=== PATIENT | male | born 1945 | race Caucasian/White ===

== ENCOUNTER 2017-03-28 15:37 | Inpatient (IN) | payer OTHER, MEDICAID ==
[2017-03-28] MEDS ORDERED: PROVENTIL NEB TX 0.083% 2.5MG/ 3ML NEB PRN (15:45)
--- NOTE | 2017-03-28 18:13 | RAD ---
HISTORY: Pneumonia Study: Single-view chest Comparison: None Findings: The trachea is midline. The cardiac silhouette is mildly enlarged. The lungs demonstrate faint rig ht lower lobe opacity with blunting of the costophrenic suggesting a small effusion.. The bony thor ax is unremarkable. IMPRESSION: 1. Right lower lobe pneumonia with small effusion. Reported By:
[2017-03-28] MEDS: PROVENTIL NEB TX 0.083% 2.5MG/ 3ML NEB SCH (18:28)
[2017-03-28 20:26] LABS: BASOPHILS % (AUTO) 0.4 % (0.2-1.0); EOSINOPHILS # (AUTO) 0.1 x10^3/uL (0.0-0.2); HEMATOCRIT 38.8 % (42.0-54.0); HEMOGLOBIN 13.2 g/dL (13.5-18.0); LYMPHOCYTES # (AUTO) 2.1 X10^3/uL (1.3-2.9); LYMPHOCYTES % (AUTO) 36.7 % (21.0-51.0); MEAN CORPUSCULAR HEMOGLOBIN 31.9 pg (27.0-34.0); MEAN CORPUSCULAR VOLUME 93.9 fL (80.0-100.0); MEAN PLATELET VOLUME 8.3 fL (7.4-11.0); MONOCYTES # (AUTO) 0.6 x10^3/uL (0.3-0.8); MONOCYTES % (AUTO) 11.3 % (0.0-13.0); NEUTROPHILS # (AUTO) 2.9 x10^3/uL (2.2-4.8); NEUTROPHILS % (AUTO) 50.6 % (42.0-75.0); PLATELET COUNT 110 X10^3/uL (150.0-450.0); RED BLOOD COUNT 4.13 X10^6/uL (4.7-6.0); RED CELL DISTRIBUTION WIDTH 13.1 % (11.6-16.5); WHITE BLOOD COUNT 5.7 X10^3/uL (3.6-10.0)
[2017-03-28 20:45] LABS: ALANINE AMINOTRANSFERASE 25 Units/L (12-78); ALBUMIN 2.8 g/dL (3.4-5.0); ALKALINE PHOSPHATASE 88 Units/L (46-116); ASPARTATE AMINO TRANSFERASE 23 Units/L (15-37); BLOOD UREA NITROGEN 15 mg/dL (7-18); CALCIUM 8.4 mg/dL (8.5-10.1); CARBON DIOXIDE 37.6 mmol/L (21-32); CHLORIDE 108 mmol/L (98-107); COR CA(FOR HYPOALB) 9.4 mg/dL (8.5-10.1); COR NA(FOR HYPERGLY) 148 mmol/L (136-145); CREATININE 0.61 mg/dL (0.70-1.30); GLUCOSE 115 mg/dL (65-99); SODIUM 148 mmol/L (136-145); TOTAL PROTEIN 6.7 g/dL (6.4-8.2); eGFR BLACK RACES > 60 (>60); eGFR NON BLACK RACES > 60 (>60)
[2017-03-28] MEDS ORDERED: NS 250 ML IV 250 ML IV ONE (21:13)
[2017-03-28] MEDS: ZITHROMAX INJ 500 MG VIAL 500 MG in NS 250 ML IV 250 ML IV SCH (21:23)
[2017-03-28] MEDS: ROCEPHIN VIAL 1 GM 1 GM in NS 50 ML IV + SPIKE MINIBAG* 50 ML IV SCH (21:23)
[2017-03-29] MEDS: PROVENTIL NEB TX 0.083% 2.5MG/ 3ML NEB SCH ×5 (00:28→16:04)
[2017-03-29] MEDS ORDERED: NS 1/2 1000 ML IV 1,000 ML IV ONE (01:18)
[2017-03-29] MEDS: NS 1/2 1000 ML IV 1,000 ML IV SCH ×2 (01:20→22:10)
--- NOTE | 2017-03-29 05:59 | RAD ---
HISTORY: Follow up pneumonia Study: Chest one view Comparison: March 28, 2017 Findings: The heart is mildly enlarged. No congestive heart failure is noted. The lungs are hypoinflated. No d efinite infiltrates are present on today's examination. There is a focus of subsegmental atelectasis in the right lung base. The bony thorax is unremarkable. IMPRESSION: Subsegmental atelectasis right lung base. Hypo inflation Cardiomegaly without congestive heart failure. Reported By:
[2017-03-29 06:07] LABS: BASOPHILS % (AUTO) 0.3 % (0.2-1.0); EOSINOPHILS % (AUTO) 0.4 % (0.9-2.9); HEMATOCRIT 42.5 % (42.0-54.0); HEMOGLOBIN 14.5 g/dL (13.5-18.0); LYMPHOCYTES # (AUTO) 2.1 X10^3/uL (1.3-2.9); LYMPHOCYTES % (AUTO) 23.3 % (21.0-51.0); MEAN CORPUSCULAR HEMOGLOBIN 32.1 pg (27.0-34.0); MEAN CORPUSCULAR HGB CONC 34.1 g/dL (33.0-35.0); MEAN CORPUSCULAR VOLUME 94.4 fL (80.0-100.0); MEAN PLATELET VOLUME 8.6 fL (7.4-11.0); MONOCYTES # (AUTO) 1.2 x10^3/uL (0.3-0.8); MONOCYTES % (AUTO) 13.4 % (0.0-13.0); NEUTROPHILS # (AUTO) 5.5 x10^3/uL (2.2-4.8); NEUTROPHILS % (AUTO) 62.6 % (42.0-75.0); PLATELET COUNT 105 X10^3/uL (150.0-450.0); RED CELL DISTRIBUTION WIDTH 12.9 % (11.6-16.5); WHITE BLOOD COUNT 8.9 X10^3/uL (3.6-10.0)
[2017-03-29 06:25] LABS: ALANINE AMINOTRANSFERASE 25 Units/L (12-78); ALKALINE PHOSPHATASE 75 Units/L (46-116); ASPARTATE AMINO TRANSFERASE 26 Units/L (15-37); BLOOD UREA NITROGEN 15 mg/dL (7-18); CALCIUM 8.7 mg/dL (8.5-10.1); CARBON DIOXIDE 34.7 mmol/L (21-32); CHLORIDE 107 mmol/L (98-107); COR CA(FOR HYPOALB) 9.5 mg/dL (8.5-10.1); COR NA(FOR HYPERGLY) 149 mmol/L (136-145); CREATININE 0.66 mg/dL (0.70-1.30); GLUCOSE 116 mg/dL (65-99); SODIUM 149 mmol/L (136-145); TOTAL PROTEIN 7.1 g/dL (6.4-8.2); eGFR BLACK RACES > 60 (>60); eGFR NON BLACK RACES > 60 (>60)
[2017-03-29] MEDS: ZITHROMAX INJ 500 MG VIAL 500 MG in NS 250 ML IV 250 ML IV SCH (08:54)
[2017-03-29] MEDS: ROCEPHIN VIAL 1 GM 1 GM in NS 50 ML IV + SPIKE MINIBAG* 50 ML IV SCH (08:55)
--- NOTE | 2017-03-29 13:51 | DR.H&P ---
H&P - History & Physical for Day of: H&P Date: 03/28/17 - Chief Complaint Chief Complaint: cough, chest congestion. abnormal cxr - Allergies Allergies/Adverse Reactions: Allergies Allergy/AdvReac Type Severity Reaction Status Date / Time No Known Drug Allergies Allergy Verified 03/28/17 15:49 - History of Present Illness History of Present Illness: 71 WM ADMITTED FROM [facility] WITH ABNORMAL CXR, PNEUMONIA, CHF FINDINGS. PT HAS PMH OF MR, HTN, GERD, SEIZURE DISORDER, HTN. PLAN TO START IV ATBX, RESP CONSULT, I & OS. REPEAT AM LABS, SEIZURE PRECAUTIONS RESUME HOME MEDS - Past Medical History Past Medical History: Arthritis, CHF, Dementia, Depression, GERD, Hypertension, Seizures - Past Surgical History Additional Surgical History: PEG TUBE - Social History Does patient currently use any type of tobacco product: No Have you used tobacco products in the last 12 months: No Type of Tobacco Use: None Alcohol Use: None Drug Use: None - Medications Home Medications: Acetaminophen [TYLENOL SUPPOSITORY 650 MG *] 650 mg MO Q4H PRN 03/28/17 [ History Confirmed 03/28/17] Amlodipine Besylate [NORVASC 5 MG *] 1 tab PEG DAILY 03/28/17 [History Confirmed 03/28/17] Cyclosporine [Restasis] 1 drop EACHEYE BID 03/28/17 [History Confirmed 03/28/17] Ipratropium/Albuterol Nebule [DUONEB 0.5 MG/3 MG NEBULE *] 1 inh INH Q6H PRN [History Confirmed 03/28/17] Lactulose 30 ml PEG DAILY 03/28/17 [History Confirmed 03/28/17] Levetiracetam [Keppra liquid] 7.5 ml PEG BID 03/28/17 [History Confirmed ] Lisinopril [ZESTRIL *] 1 tab PEG BID 03/28/17 [History Confirmed 03/28/17] Lorazepam [ATIVAN 0.5 MG TAB *] 1 tab GT Q4H PRN 03/28/17 [History Confirmed ] Magnesium Hydroxide [Milk of Magnesia] 30 ml PEG DAILY 03/28/17 [History Confirmed 03/28/17] Ranitidine HCl [ZANTAC SYRUP 150 MG/10 ML *] 20 ml PEG DAILY 03/28/17 [History Confirmed 03/28/17] Valproic Acid (As Sodium Salt) [Valproic Acid] 10 ml PEG TID 03/28/17 [History Confirmed 03/28/17] - Review of Systems Constitutional: Weakness Eyes: No Symptoms Reported ENT: No Symptoms Reported Respiratory: Cough, Shortness of Breath, Wheezing Cardiovascular: No Symptoms Reported, Edema Gastrointestinal: No Symptoms Reported Genitourinary: Incontinence Musculoskeletal: No Symptoms Reported Skin: No Symptoms Reported Neurological: Confusion (CHRONIC) - Physical Exam Vital Signs: Temperature 99.8 F Pulse Rate [Left Brachial] 101 Pulse Rate [Right Brachial] 87 Pulse Rate 88 Respiratory Rate 22 Blood Pressure [Left Arm] 161/70 O2 Sat by Pulse Oximetry 90 Oriented: Person Eyes: Normal Ear: Normal Nose: Normal Throat: Dry Respiratory: Rhonchi Throughout, RLL Diminished, LLL Diminished Cardiovascular: Normal : Normal Auscultation: Bowel Sounds: Normal Palpation: Normal Tenderness: Normal Skin: Decreased Turgur Musculoskeletal: Motor Deficit (LOWER EXTREMITY MUSCLE WEAKNESS, ATROPHY) Mood Description: Flat Speech Pattern: Inappropriate - Assessment/Plan (1) Pneumonia Qualifiers: Pneumonia type: P Aspiration pneumonia type: A Laterality: L Lung location: L Status: Acute Plan: COLLECT SPUTUM AND BLOOD CULTURES, IV ATBX, RESPT THERAPY. CXR ON ADMISSION, REPEAT AM LABS, MONITOR. RESUME HOME MEDS,. SEIZURE PRECAUTIONS, I & OS, EKG (2) CHF (congestive heart failure) Qualifiers: Congestive heart failure type: C Congestive heart failure chronicity: C Status: Acute (3) GERD (gastroesophageal reflux disease) Qualifiers: Esophagitis presence: E Status: Acute (4) Seizure Status: Acute (5) Hypertension Qualifiers: Hypertension type: H Status: Acute
--- NOTE | 2017-03-29 14:27 | PCM.PROG ---
Progress Note - Progress Note for Day of Date: 03/29/17 - Subjective Subjective: 71 WM ADMITTED FROM [facility] WITH PNEUMONIA AND CHF. PT CONTINUES WITH DIMINISHED LUNG BASES AND DIFFUSE RHONCHI. PT SPUTUM CULTURE RESULTS ON CHART. WILL D/C ZITHROMAX AND START LEVAQUIN, CONTINUE WITH SUPPLEMENT O2, IV HYDRATION, LASIX IV, INSERT BOWEN FOR STRICT I & OS - Past Medical Family Social History Past Med/Fam/Surg Hx: No changes since H&P Allergies: Allergies No Known Drug Allergies Allergy (Verified 03/28/17 15:49) - Review of Systems ROS: No change since H&P - Vital Signs and I&O's Vital Signs: Temperature 99.8 F Pulse Rate [Left Brachial] 101 Pulse Rate [Right Brachial] 87 Pulse Rate 88 Respiratory Rate 22 Blood Pressure [Left Arm] 161/70 O2 Sat by Pulse Oximetry 90 Intake and Output: Intake & Output 03/27/17 03/28/17 03/29/17 03/30/17 11:59 11:59 11:59 11:59 Intake Total 311 Balance 311 - Physical Exam Oriented: Person Eyes: Normal Ear: Normal Nose: Normal Throat: Dry Cardiovascular: Normal : Normal Auscultation: Bowel Sounds: Normal Tenderness: Normal Skin: Decreased Turgur Musculoskeletal: Motor Deficit (LOWER EXTREMITY MUSCLE WEAKNESS, ATROPHY) Mood Description: Flat Speech Pattern: Inappropriate - Laboratory and Diagnostics Result Diagrams: 03/30/17 05:24 03/30/17 05:24 Labs: 03/28/17 18:20 Sputum - Expectorated Sputum Sputum Culture - Preliminary 03/28/17 18:20 Sputum - Expectorated Sputum - Final Laboratory WBC 8.9 X10^3/uL (3.6-10.0) 03/29/17 05:35 RBC 4.50 X10^6/uL (4.7-6.0) L 03/29/17 05:35 Hgb 14.5 g/dL (13.5-18.0) 03/29/17 05:35 Hct 42.5 % (42.0-54.0) 03/29/17 05:35 MCV 94.4 fL (80.0-100.0) 03/29/17 05:35 MCH 32.1 pg (27.0-34.0) 03/29/17 05:35 MCHC 34.1 g/dL (33.0-35.0) 03/29/17 05:35 RDW 12.9 % (11.6-16.5) 03/29/17 05:35 Plt Count 105 X10^3/uL (150.0-450.0) L 03/29/17 05:35 MPV 8.6 fL (7.4-11.0) 03/29/17 05:35 Neut % 62.6 % (42.0-75.0) 03/29/17 05:35 Lymph % 23.3 % (21.0-51.0) 03/29/17 05:35 [place] % 13.4 % (0.0-13.0) H 03/29/17 05:35 Eos % 0.4 % (0.9-2.9) L 03/29/17 05:35 Baso % 0.3 % (0.2-1.0) 03/29/17 05:35 Neut # 5.5 x10^3/uL (2.2-4.8) H 03/29/17 05:35 Lymph # 2.1 X10^3/uL (1.3-2.9) 03/29/17 05:35 [place] # 1.2 x10^3/uL (0.3-0.8) H 03/29/17 05:35 Eos # 0.0 x10^3/uL (0.0-0.2) 03/29/17 05:35 Baso # 0.0 X10^3/uL (0.0-0.1) 03/29/17 05:35 Absolute Nucleated RBC 0.1 /100WBC 03/29/17 05:35 Sodium 149 mmol/L (136-145) H 03/29/17 05:35 Corrected Sodium 149 mmol/L (136-145) H 03/29/17 05:35 Potassium 4.0 mmol/L (3.5-5.1) 03/29/17 05:35 Chloride 107 mmol/L (98-107) 03/29/17 05:35 Carbon Dioxide 34.7 mmol/L (21-32) H 03/29/17 05:35 BUN 15 mg/dL (7-18) 03/29/17 05:35 Creatinine 0.66 mg/dL (0.70-1.30) L 03/29/17 05:35 Est GFR (MDRD) Af Amer > 60 (>60) 03/29/17 05:35 Est GFR (MDRD) Non-Af > 60 (>60) 03/29/17 05:35 Glucose 116 mg/dL (65-99) H 03/29/17 05:35 Calcium 8.7 mg/dL (8.5-10.1) 03/29/17 05:35 Corrected Calcium 9.5 mg/dL (8.5-10.1) 03/29/17 05:35 Total Bilirubin 0.50 mg/dL (0.2-1.0) 03/29/17 05:35 AST 26 Units/L (15-37) 03/29/17 05:35 ALT 25 Units/L (12-78) 03/29/17 05:35 Alkaline Phosphatase 75 Units/L (46-116) 03/29/17 05:35 Total Protein 7.1 g/dL (6.4-8.2) 03/29/17 05:35 Albumin 3.0 g/dL (3.4-5.0) L 03/29/17 05:35 Globulin 4.1 g/dL (2.5-4.5) 03/29/17 05:35 Albumin/Globulin Ratio 0.7 Ratio (1.1-2.1) L 03/29/17 05:35 - Plan (1) Pneumonia Status: Acute Qualifiers: Pneumonia type: P Aspiration pneumonia type: A Laterality: L Lung location: L Plan: LEVAQUIN AND ROCEPHIN IV, RESP THERAPY. CXR AM, REPEAT AM LABS, MONITOR. RESUME HOME MEDS,. SEIZURE PRECAUTIONS, I & OS, EKG (2) CHF (congestive heart failure) Status: Acute Qualifiers: Congestive heart failure type: C Congestive heart failure chronicity: C Plan: I & O'S LASIX IV Q 12. BP AND LIPID CONTROL,. ECHO (3) GERD (gastroesophageal reflux disease) Status: Acute Qualifiers: Esophagitis presence: E Plan: PPI (4) Seizure Status: Acute (5) Hypertension Status: Acute Qualifiers: Hypertension type: H
[2017-03-29 14:49] LABS: BASOPHILS # (AUTO) 0.1 X10^3/uL (0.0-0.1); BASOPHILS % (AUTO) 0.7 % (0.2-1.0); EOSINOPHILS % (AUTO) 0.3 % (0.9-2.9); HEMOGLOBIN 13.5 g/dL (13.5-18.0); LYMPHOCYTES # (AUTO) 2.5 X10^3/uL (1.3-2.9); MEAN CORPUSCULAR HEMOGLOBIN 31.8 pg (27.0-34.0); MEAN CORPUSCULAR HGB CONC 33.7 g/dL (33.0-35.0); MEAN CORPUSCULAR VOLUME 94.2 fL (80.0-100.0); MEAN PLATELET VOLUME 8.4 fL (7.4-11.0); MONOCYTES # (AUTO) 1.1 x10^3/uL (0.3-0.8); MONOCYTES % (AUTO) 14.7 % (0.0-13.0); NEUTROPHILS % (AUTO) 52.3 % (42.0-75.0); PLATELET COUNT 108 X10^3/uL (150.0-450.0); RED BLOOD COUNT 4.25 X10^6/uL (4.7-6.0); RED CELL DISTRIBUTION WIDTH 13.3 % (11.6-16.5); WHITE BLOOD COUNT 7.7 X10^3/uL (3.6-10.0)
[2017-03-29 15:02] LABS: ALANINE AMINOTRANSFERASE 23 Units/L (12-78); ALKALINE PHOSPHATASE 76 Units/L (46-116); ASPARTATE AMINO TRANSFERASE 22 Units/L (15-37); BLOOD UREA NITROGEN 17 mg/dL (7-18); CALCIUM 8.7 mg/dL (8.5-10.1); CARBON DIOXIDE 37.1 mmol/L (21-32); CHLORIDE 108 mmol/L (98-107); COR CA(FOR HYPOALB) 9.5 mg/dL (8.5-10.1); COR NA(FOR HYPERGLY) 149 mmol/L (136-145); CREATININE 0.61 mg/dL (0.70-1.30); GLUCOSE 126 mg/dL (65-99); SODIUM 148 mmol/L (136-145); TOTAL PROTEIN 7.1 g/dL (6.4-8.2); eGFR BLACK RACES > 60 (>60); eGFR NON BLACK RACES > 60 (>60)
[2017-03-29] MEDS: ATIVAN TAB 0.5 MG PEG PRN (17:50)
[2017-03-29] MEDS ORDERED: ZESTRIL TAB 20 MG ONE (21:45)
[2017-03-29] MEDS: KEPPRA TAB 500 MG PO SCH (22:09)
[2017-03-29] MEDS: ZESTRIL TAB 20 MG PEG SCH (22:09)
[2017-03-30] MEDS: PROVENTIL NEB TX 0.083% 2.5MG/ 3ML NEB SCH ×4 (00:17→17:02)
[2017-03-30 05:52] LABS: BASOPHILS % (AUTO) 0.5 % (0.2-1.0); EOSINOPHILS % (AUTO) 0.4 % (0.9-2.9); HEMATOCRIT 37.8 % (42.0-54.0); HEMOGLOBIN 12.9 g/dL (13.5-18.0); LYMPHOCYTES # (AUTO) 3.2 X10^3/uL (1.3-2.9); LYMPHOCYTES % (AUTO) 39.7 % (21.0-51.0); MEAN CORPUSCULAR HEMOGLOBIN 32.1 pg (27.0-34.0); MEAN CORPUSCULAR HGB CONC 34.1 g/dL (33.0-35.0); MEAN CORPUSCULAR VOLUME 94.1 fL (80.0-100.0); MEAN PLATELET VOLUME 8.9 fL (7.4-11.0); MONOCYTES # (AUTO) 1.1 x10^3/uL (0.3-0.8); MONOCYTES % (AUTO) 14.5 % (0.0-13.0); NEUTROPHILS # (AUTO) 3.6 x10^3/uL (2.2-4.8); NEUTROPHILS % (AUTO) 44.9 % (42.0-75.0); PLATELET COUNT 105 X10^3/uL (150.0-450.0); RED BLOOD COUNT 4.02 X10^6/uL (4.7-6.0); RED CELL DISTRIBUTION WIDTH 13.1 % (11.6-16.5); WHITE BLOOD COUNT 7.9 X10^3/uL (3.6-10.0)
--- NOTE | 2017-03-30 05:59 | RAD ---
HISTORY: Follow up pneumonia Study: Chest one view Comparison: March 29, 2017 Findings: The heart remains mildly enlarged. No definite congestive heart failure is noted. The lungs remain h ypoinflated. There is a focus of subsegmental atelectasis in the right lung base. No definite acute infiltrates are identified. No definite pleural effusions are identified. The bony thorax is unremar kable. IMPRESSION: No change subsegmental atelectasis right lung base Cardiomegaly without congestive heart failure Continued marked hypo inflation Reported By:
[2017-03-30 06:00] LABS: ALANINE AMINOTRANSFERASE 24 Units/L (12-78); ALBUMIN 2.9 g/dL (3.4-5.0); ALKALINE PHOSPHATASE 106 Units/L (46-116); ASPARTATE AMINO TRANSFERASE 22 Units/L (15-37); BLOOD UREA NITROGEN 18 mg/dL (7-18); CALCIUM 8.7 mg/dL (8.5-10.1); CARBON DIOXIDE 37.5 mmol/L (21-32); CHLORIDE 108 mmol/L (98-107); COR CA(FOR HYPOALB) 9.6 mg/dL (8.5-10.1); COR NA(FOR HYPERGLY) 149 mmol/L (136-145); CREATININE 0.58 mg/dL (0.70-1.30); GLUCOSE 141 mg/dL (65-99); SODIUM 148 mmol/L (136-145); TOTAL PROTEIN 7.1 g/dL (6.4-8.2); eGFR BLACK RACES > 60 (>60); eGFR NON BLACK RACES > 60 (>60)
[2017-03-30 06:24] VITALS: BMI 27.4
[2017-03-30] MEDS ORDERED: NS 1/2 1000 ML IV 1,000 ML IV ONE (08:10)
[2017-03-30] MEDS ORDERED: ZESTRIL TAB 20 MG ONE ×2 (08:14→22:09)
[2017-03-30] MEDS: NS 1/2 1000 ML IV 1,000 ML IV SCH (08:58)
[2017-03-30] MEDS: ZITHROMAX INJ 500 MG VIAL 500 MG in NS 250 ML IV 250 ML IV SCH (09:01)
[2017-03-30] MEDS: PROTONIX INJ 40 MG VIAL IVP SCH (09:02)
[2017-03-30] MEDS: CHRONULAC PEG SCH (09:02)
[2017-03-30] MEDS: NORVASC TAB 5 MG PEG SCH (09:03)
[2017-03-30] MEDS: ZESTRIL TAB 20 MG PEG SCH ×2 (09:03→22:18)
[2017-03-30] MEDS: KEPPRA TAB 500 MG PO SCH ×2 (09:03→22:17)
[2017-03-30] MEDS: ROCEPHIN VIAL 1 GM 1 GM in NS 50 ML IV + SPIKE MINIBAG* 50 ML IV SCH (09:04)
[2017-03-30] MEDS: LASIX IVP SCH ×2 (09:31→22:17)
[2017-03-30 10:15] LABS: BILIRUBIN,URINE NEGATIVE (NEGATIVE); BLOOD/HEMOGLOBIN,URINE 3+ (NEGATIVE); GLUCOSE, URINE NEGATIVE (NEGATIVE); KETONES,URINE NEGATIVE (NEGATIVE); LEUKOCYTE ESTERASE ,URINE 3+ (NEGATIVE); NITRITES,URINE NEGATIVE (NEGATIVE); PROTEIN,URINE 2+ (NEGATIVE); UROBILINOGEN,URINE NORMAL (NORMAL)
[2017-03-30 11:21] LABS: APPEARANCE,URINE CLOUDY (CLEAR); BACTERIA,URINE TRACE /HPF (NEGATIVE); COLOR,URINE YELLOW (YELLOW); RBC,URINE 15-20 /HPF (NEGATIVE); SQUAMOUS EPITHELIAL CELL,UR RARE /HPF (NEGATIVE)
--- NOTE | 2017-03-30 12:41 | PCM.PROG ---
Progress Note - Progress Note for Day of Date: 03/30/17 - Subjective Subjective: 71 WM ADMITTED FROM [facility] WITH PNEUMONIA AND CHF. PT CONTINUES WITH DIMINISHED LUNG BASES AND DIFFUSE RHONCHI. PT SPUTUM CULTURE RESULTS ON CHART.CONTINUE IV ATBX, CONTINUE WITH SUPPLEMENT O2, IV HYDRATION, LASIX IV, INSERT BOWEN FOR STRICT I & OS - Past Medical Family Social History Past Med/Fam/Surg Hx: No changes since H&P Allergies: Allergies No Known Drug Allergies Allergy (Verified 03/28/17 15:49) - Review of Systems ROS: No change since H&P - Vital Signs and I&O's Vital Signs: Temperature 101.0 F Pulse Rate [Left Brachial] 108 Pulse Rate [Right Brachial] 86 Pulse Rate 105 Respiratory Rate 20 Blood Pressure [Right Arm] 176/80 Blood Pressure [Left Arm] 141/66 O2 Sat by Pulse Oximetry 95 Intake and Output: Intake & Output 03/28/17 03/29/17 03/30/17 03/31/17 11:59 11:59 11:59 11:59 Intake Total 311 2726 Balance 311 2726 - Physical Exam Oriented: Person Eyes: Normal Ear: Normal Nose: Normal Throat: Dry Respiratory: Diminished, Rhonchi Cardiovascular: Normal : Normal Auscultation: Bowel Sounds: Normal Tenderness: Normal Skin: Decreased Turgur Musculoskeletal: Motor Deficit (LOWER EXTREMITY MUSCLE WEAKNESS, ATROPHY) Mood Description: Flat Speech Pattern: Inappropriate - Laboratory and Diagnostics Result Diagrams: 03/30/17 05:24 03/30/17 05:24 Labs: 03/28/17 20:10 Blood Blood Culture - Preliminary 03/28/17 21:00 Blood Blood Culture - Preliminary 03/28/17 18:20 Sputum - Expectorated Sputum Sputum Culture - Preliminary Pseudomonas Aeruginosa 03/28/17 18:20 Sputum - Expectorated Sputum - Final Laboratory WBC 7.9 X10^3/uL (3.6-10.0) 03/30/17 05:24 RBC 4.02 X10^6/uL (4.7-6.0) L 03/30/17 05:24 Hgb 12.9 g/dL (13.5-18.0) L 03/30/17 05:24 Hct 37.8 % (42.0-54.0) L 03/30/17 05:24 MCV 94.1 fL (80.0-100.0) 03/30/17 05:24 MCH 32.1 pg (27.0-34.0) 03/30/17 05:24 MCHC 34.1 g/dL (33.0-35.0) 03/30/17 05:24 RDW 13.1 % (11.6-16.5) 03/30/17 05:24 Plt Count 105 X10^3/uL (150.0-450.0) L 03/30/17 05:24 MPV 8.9 fL (7.4-11.0) 03/30/17 05:24 Neut % 44.9 % (42.0-75.0) 03/30/17 05:24 Lymph % 39.7 % (21.0-51.0) 03/30/17 05:24 [place] % 14.5 % (0.0-13.0) H 03/30/17 05:24 Eos % 0.4 % (0.9-2.9) L 03/30/17 05:24 Baso % 0.5 % (0.2-1.0) 03/30/17 05:24 Neut # 3.6 x10^3/uL (2.2-4.8) 03/30/17 05:24 Lymph # 3.2 X10^3/uL (1.3-2.9) H 03/30/17 05:24 [place] # 1.1 x10^3/uL (0.3-0.8) H 03/30/17 05:24 Eos # 0.0 x10^3/uL (0.0-0.2) 03/30/17 05:24 Baso # 0.0 X10^3/uL (0.0-0.1) 03/30/17 05:24 Absolute Nucleated RBC 0.0 /100WBC 03/30/17 05:24 Sodium 148 mmol/L (136-145) H 03/30/17 05:24 Corrected Sodium 149 mmol/L (136-145) H 03/30/17 05:24 Potassium 4.2 mmol/L (3.5-5.1) 03/30/17 05:24 Chloride 108 mmol/L (98-107) H 03/30/17 05:24 Carbon Dioxide 37.5 mmol/L (21-32) H 03/30/17 05:24 BUN 18 mg/dL (7-18) 03/30/17 05:24 Creatinine 0.58 mg/dL (0.70-1.30) L 03/30/17 05:24 Est GFR (MDRD) Af Amer > 60 (>60) 03/30/17 05:24 Est GFR (MDRD) Non-Af > 60 (>60) 03/30/17 05:24 Glucose 141 mg/dL (65-99) H 03/30/17 05:24 Calcium 8.7 mg/dL (8.5-10.1) 03/30/17 05:24 Corrected Calcium 9.6 mg/dL (8.5-10.1) 03/30/17 05:24 Total Bilirubin 0.40 mg/dL (0.2-1.0) 03/30/17 05:24 AST 22 Units/L (15-37) 03/30/17 05:24 ALT 24 Units/L (12-78) 03/30/17 05:24 Alkaline Phosphatase 106 Units/L (46-116) 03/30/17 05:24 B-Natriuretic Peptide 41.0 pg/mL (0-79) 03/29/17 14:38 Total Protein 7.1 g/dL (6.4-8.2) 03/30/17 05:24 Albumin 2.9 g/dL (3.4-5.0) L 03/30/17 05:24 Globulin 4.2 g/dL (2.5-4.5) 03/30/17 05:24 Albumin/Globulin Ratio 0.7 Ratio (1.1-2.1) L 03/30/17 05:24 Specimen Type Catherized urine 03/30/17 09:20 Urine Color Yellow (YELLOW) 03/30/17 09:20 Urine Appearance Cloudy (CLEAR) 03/30/17 09:20 Urine pH 6.0 (5.0 - 8.0) 03/30/17 09:20 Ur Specific [place] 1.015 (1.000-1.030) 03/30/17 09:20 Urine Protein 2+ (NEGATIVE) 03/30/17 09:20 Urine Glucose (UA) Negative (NEGATIVE) 03/30/17 09:20 Urine Ketones Negative (NEGATIVE) 03/30/17 09:20 Urine Occult Blood 3+ (NEGATIVE) 03/30/17 09:20 Urine Nitrite Negative (NEGATIVE) 03/30/17 09:20 Urine Bilirubin Negative (NEGATIVE) 03/30/17 09:20 Urine Urobilinogen Normal (NORMAL) 03/30/17 09:20 Ur Leukocyte Esterase 3+ (NEGATIVE) 03/30/17 09:20 Urine RBC 15-20 /HPF (NEGATIVE) 03/30/17 09:20 Urine WBC Tntc /HPF (NEGATIVE) 03/30/17 09:20 Ur Squamous Epith Cells Rare /HPF (NEGATIVE) 03/30/17 09:20 Urine Bacteria Trace /HPF (NEGATIVE) 03/30/17 09:20 Ur Culture Indicated? Yes/culture set up 03/30/17 09:20 - Plan (1) Pneumonia Status: Acute Qualifiers: Pneumonia type: P Aspiration pneumonia type: A Laterality: L Lung location: L Plan: LEVAQUIN AND ROCEPHIN IV, RESP THERAPY. CXR AM, REPEAT AM LABS, MONITOR. RESUME HOME MEDS,. SEIZURE PRECAUTIONS, I & OS, EKG (2) CHF (congestive heart failure) Status: Acute Qualifiers: Congestive heart failure type: C Congestive heart failure chronicity: C Plan: I & O'S LASIX IV Q 12. BP AND LIPID CONTROL,. ECHO (3) GERD (gastroesophageal reflux disease) Status: Acute Qualifiers: Esophagitis presence: E Plan: PPI (4) Seizure Status: Acute (5) Hypertension Status: Acute Qualifiers: Hypertension type: H
[2017-03-30] MEDS: LEVAQUIN PREMIX IV 500 MG 500 MG/100 ML BAG IV SCH (14:25)
[2017-03-30] MEDS: TYLENOL 325 MG TAB PO PRN ×2 (15:28→20:16)
[2017-03-31] MEDS: PROVENTIL NEB TX 0.083% 2.5MG/ 3ML NEB SCH ×4 (00:39→16:59)
[2017-03-31] MEDS: TYLENOL 325 MG TAB PO PRN ×4 (01:56→21:34)
[2017-03-31 04:43] LABS: BASOPHILS % (AUTO) 0.3 % (0.2-1.0); EOSINOPHILS % (AUTO) 0.4 % (0.9-2.9); HEMATOCRIT 33.8 % (42.0-54.0); HEMOGLOBIN 11.5 g/dL (13.5-18.0); LYMPHOCYTES # (AUTO) 2.2 X10^3/uL (1.3-2.9); LYMPHOCYTES % (AUTO) 31.3 % (21.0-51.0); MEAN CORPUSCULAR HGB CONC 34.1 g/dL (33.0-35.0); MEAN CORPUSCULAR VOLUME 93.7 fL (80.0-100.0); MEAN PLATELET VOLUME 9.2 fL (7.4-11.0); MONOCYTES # (AUTO) 0.9 x10^3/uL (0.3-0.8); MONOCYTES % (AUTO) 13.2 % (0.0-13.0); NEUTROPHILS # (AUTO) 3.8 x10^3/uL (2.2-4.8); NEUTROPHILS % (AUTO) 54.8 % (42.0-75.0); PLATELET COUNT 107 X10^3/uL (150.0-450.0); RED CELL DISTRIBUTION WIDTH 13.1 % (11.6-16.5); WHITE BLOOD COUNT 6.9 X10^3/uL (3.6-10.0)
[2017-03-31 04:48] LABS: ALANINE AMINOTRANSFERASE 23 Units/L (12-78); ALBUMIN 2.5 g/dL (3.4-5.0); ALKALINE PHOSPHATASE 96 Units/L (46-116); ASPARTATE AMINO TRANSFERASE 24 Units/L (15-37); BLOOD UREA NITROGEN 20 mg/dL (7-18); CALCIUM 7.9 mg/dL (8.5-10.1); CHLORIDE 104 mmol/L (98-107); COR CA(FOR HYPOALB) 9.1 mg/dL (8.5-10.1); COR NA(FOR HYPERGLY) 146 mmol/L (136-145); CREATININE 0.66 mg/dL (0.70-1.30); GLUCOSE 162 mg/dL (65-99); MAGNESIUM 1.8 mg/dL (1.7-2.9); SODIUM 145 mmol/L (136-145); TOTAL PROTEIN 6.3 g/dL (6.4-8.2); eGFR BLACK RACES > 60 (>60); eGFR NON BLACK RACES > 60 (>60)
[2017-03-31] MEDS ORDERED: ZESTRIL TAB 20 MG ONE ×2 (09:39→21:03)
[2017-03-31] MEDS: KEPPRA TAB 500 MG PO SCH ×2 (09:45→21:15)
[2017-03-31] MEDS: ZESTRIL TAB 20 MG PEG SCH ×2 (09:45→21:15)
[2017-03-31] MEDS: NORVASC TAB 5 MG PEG SCH (09:46)
[2017-03-31] MEDS: ROCEPHIN VIAL 1 GM 1 GM in NS 50 ML IV + SPIKE MINIBAG* 50 ML IV SCH (09:47)
[2017-03-31] MEDS: PROTONIX INJ 40 MG VIAL IVP SCH (09:47)
[2017-03-31] MEDS: CHRONULAC PEG SCH (09:52)
[2017-03-31] MEDS: LEVAQUIN PREMIX IV 500 MG 500 MG/100 ML BAG IV SCH (10:06)
[2017-03-31] MEDS: ZYVOX 600MG IV 600 MG/300 ML BAG IV SCH ×2 (11:17→21:16)
[2017-03-31] MEDS: ATIVAN TAB 0.5 MG PEG PRN ×3 (11:18→21:34)
--- NOTE | 2017-03-31 13:40 | PCM.PROG ---
Progress Note - Progress Note for Day of Date: 03/31/17 - Subjective Subjective: 71 WM ADMITTED FROM [facility] WITH PNEUMONIA AND CHF. PT CONTINUES WITH DIMINISHED LUNG BASES AND DIFFUSE RHONCHI. PT SPUTUM CULTURE RESULTS ON CHART.CONTINUE IV ATBX, CONTINUE WITH SUPPLEMENT O2, IV HYDRATION, LASIX IV, INSERT BOWEN FOR STRICT I & OS - Past Medical Family Social History Past Med/Fam/Surg Hx: No changes since H&P Allergies: Allergies No Known Drug Allergies Allergy (Verified 03/28/17 15:49) - Review of Systems ROS: No change since H&P - Vital Signs and I&O's Vital Signs: Temperature 101.6 F Pulse Rate [Left Brachial] 106 Pulse Rate [Right Brachial] 86 Pulse Rate 106 Respiratory Rate 20 Blood Pressure [Right Arm] 138/71 Blood Pressure [Left Arm] 141/66 O2 Sat by Pulse Oximetry 95 Intake and Output: Intake & Output 03/29/17 03/30/17 03/31/17 04/01/17 11:59 11:59 11:59 11:59 Intake Total 311 2726 746 Output Total 2600 Balance 311 7516 -7898 - Physical Exam Oriented: Person Eyes: Normal Ear: Normal Nose: Normal Throat: Dry Respiratory: Diminished, Rhonchi Cardiovascular: Normal : Normal Auscultation: Bowel Sounds: Normal Tenderness: Normal Skin: Decreased Turgur Musculoskeletal: Motor Deficit (LOWER EXTREMITY MUSCLE WEAKNESS, ATROPHY) Mood Description: Flat Speech Pattern: Aphasic - Laboratory and Diagnostics Result Diagrams: 03/31/17 03:25 03/31/17 03:25 Labs: 03/30/17 09:20 Urine,Catheterized Urine Culture - Preliminary 03/28/17 18:20 Sputum - Expectorated Sputum Sputum Culture - Final Pseudomonas Aeruginosa Strep Agalactiae - (Group B) 03/28/17 18:20 Sputum - Expectorated Sputum - Final 03/28/17 20:10 Blood Blood Culture - Preliminary 03/28/17 21:00 Blood Blood Culture - Preliminary Laboratory WBC 6.9 X10^3/uL (3.6-10.0) 03/31/17 03:25 RBC 3.60 X10^6/uL (4.7-6.0) L 03/31/17 03:25 Hgb 11.5 g/dL (13.5-18.0) L 03/31/17 03:25 Hct 33.8 % (42.0-54.0) L 03/31/17 03:25 MCV 93.7 fL (80.0-100.0) 03/31/17 03:25 MCH 32.0 pg (27.0-34.0) 03/31/17 03:25 MCHC 34.1 g/dL (33.0-35.0) 03/31/17 03:25 RDW 13.1 % (11.6-16.5) 03/31/17 03:25 Plt Count 107 X10^3/uL (150.0-450.0) L 03/31/17 03:25 MPV 9.2 fL (7.4-11.0) 03/31/17 03:25 Neut % 54.8 % (42.0-75.0) 03/31/17 03:25 Lymph % 31.3 % (21.0-51.0) 03/31/17 03:25 [place] % 13.2 % (0.0-13.0) H 03/31/17 03:25 Eos % 0.4 % (0.9-2.9) L 03/31/17 03:25 Baso % 0.3 % (0.2-1.0) 03/31/17 03:25 Neut # 3.8 x10^3/uL (2.2-4.8) 03/31/17 03:25 Lymph # 2.2 X10^3/uL (1.3-2.9) 03/31/17 03:25 [place] # 0.9 x10^3/uL (0.3-0.8) H 03/31/17 03:25 Eos # 0.0 x10^3/uL (0.0-0.2) 03/31/17 03:25 Baso # 0.0 X10^3/uL (0.0-0.1) 03/31/17 03:25 Absolute Nucleated RBC 0.0 /100WBC 03/31/17 03:25 Sodium 145 mmol/L (136-145) 03/31/17 03:25 Corrected Sodium 146 mmol/L (136-145) H 03/31/17 03:25 Potassium 3.5 mmol/L (3.5-5.1) 03/31/17 03:25 Chloride 104 mmol/L (98-107) 03/31/17 03:25 Carbon Dioxide 39.0 mmol/L (21-32) H 03/31/17 03:25 BUN 20 mg/dL (7-18) H 03/31/17 03:25 Creatinine 0.66 mg/dL (0.70-1.30) L 03/31/17 03:25 Est GFR (MDRD) Af Amer > 60 (>60) 03/31/17 03:25 Est GFR (MDRD) Non-Af > 60 (>60) 03/31/17 03:25 Glucose 162 mg/dL (65-99) H 03/31/17 03:25 Calcium 7.9 mg/dL (8.5-10.1) L 03/31/17 03:25 Corrected Calcium 9.1 mg/dL (8.5-10.1) 03/31/17 03:25 Magnesium 1.8 mg/dL (1.7-2.9) 03/31/17 03:25 Total Bilirubin 0.30 mg/dL (0.2-1.0) 03/31/17 03:25 AST 24 Units/L (15-37) 03/31/17 03:25 ALT 23 Units/L (12-78) 03/31/17 03:25 Alkaline Phosphatase 96 Units/L (46-116) 03/31/17 03:25 B-Natriuretic Peptide 41.0 pg/mL (0-79) 03/29/17 14:38 Total Protein 6.3 g/dL (6.4-8.2) L 03/31/17 03:25 Albumin 2.5 g/dL (3.4-5.0) L 03/31/17 03:25 Globulin 3.8 g/dL (2.5-4.5) 03/31/17 03:25 Albumin/Globulin Ratio 0.7 Ratio (1.1-2.1) L 03/31/17 03:25 Specimen Type Catherized urine 03/30/17 09:20 Urine Color Yellow (YELLOW) 03/30/17 09:20 Urine Appearance Cloudy (CLEAR) 03/30/17 09:20 Urine pH 6.0 (5.0 - 8.0) 03/30/17 09:20 Ur Specific [place] 1.015 (1.000-1.030) 03/30/17 09:20 Urine Protein 2+ (NEGATIVE) 03/30/17 09:20 Urine Glucose (UA) Negative (NEGATIVE) 03/30/17 09:20 Urine Ketones Negative (NEGATIVE) 03/30/17 09:20 Urine Occult Blood 3+ (NEGATIVE) 03/30/17 09:20 Urine Nitrite Negative (NEGATIVE) 03/30/17 09:20 Urine Bilirubin Negative (NEGATIVE) 03/30/17 09:20 Urine Urobilinogen Normal (NORMAL) 03/30/17 09:20 Ur Leukocyte Esterase 3+ (NEGATIVE) 03/30/17 09:20 Urine RBC 15-20 /HPF (NEGATIVE) 03/30/17 09:20 Urine WBC Tntc /HPF (NEGATIVE) 03/30/17 09:20 Ur Squamous Epith Cells Rare /HPF (NEGATIVE) 03/30/17 09:20 Urine Bacteria Trace /HPF (NEGATIVE) 03/30/17 09:20 Ur Culture Indicated? Yes/culture set up 03/30/17 09:20 - Plan (1) Pneumonia Status: Acute Qualifiers: Pneumonia type: P Aspiration pneumonia type: A Laterality: L Lung location: L Plan: LEVAQUIN AND ROCEPHIN IV, RESP THERAPY. CXR AM, REPEAT AM LABS, MONITOR. RESUME HOME MEDS,. SEIZURE PRECAUTIONS, I & OS, EKG (2) CHF (congestive heart failure) Status: Acute Qualifiers: Congestive heart failure type: C Congestive heart failure chronicity: C Plan: I & O'S LASIX IV Q 12. BP AND LIPID CONTROL, (3) GERD (gastroesophageal reflux disease) Status: Acute Qualifiers: Esophagitis presence: E Plan: PPI (4) Seizure Status: Acute Plan: RESUME HOME MEDS (5) Hypertension Status: Acute Qualifiers: Hypertension type: H
[2017-03-31] MEDS: NS 1/2 1000 ML IV 1,000 ML IV SCH ×2 (21:35→23:28)
[2017-03-31] MEDS ORDERED: NS 1/2 1000 ML IV 1,000 ML IV ONE (21:46)
[2017-03-31] MEDS: NORCO 5/325 MG TAB PO PRN (23:21)
[2017-04-01] MEDS: PROVENTIL NEB TX 0.083% 2.5MG/ 3ML NEB SCH ×5 (00:36→18:45)
[2017-04-01] MEDS: ATIVAN TAB 0.5 MG PEG PRN ×4 (02:07→21:25)
[2017-04-01] MEDS: TYLENOL 325 MG TAB PO PRN (02:07)
[2017-04-01 05:26] LABS: ALANINE AMINOTRANSFERASE 31 Units/L (12-78); ALBUMIN 2.6 g/dL (3.4-5.0); ALKALINE PHOSPHATASE 69 Units/L (46-116); ASPARTATE AMINO TRANSFERASE 34 Units/L (15-37); BLOOD UREA NITROGEN 23 mg/dL (7-18); CALCIUM 7.8 mg/dL (8.5-10.1); CARBON DIOXIDE 35.6 mmol/L (21-32); CHLORIDE 101 mmol/L (98-107); COR CA(FOR HYPOALB) 8.9 mg/dL (8.5-10.1); COR NA(FOR HYPERGLY) 140 mmol/L (136-145); GLUCOSE 116 mg/dL (65-99); SODIUM 140 mmol/L (136-145); TOTAL PROTEIN 6.3 g/dL (6.4-8.2); eGFR BLACK RACES > 60 (>60); eGFR NON BLACK RACES > 60 (>60)
[2017-04-01 05:37] LABS: BASOPHILS % (AUTO) 0.3 % (0.2-1.0); EOSINOPHILS % (AUTO) 0.3 % (0.9-2.9); HEMATOCRIT 33.8 % (42.0-54.0); HEMOGLOBIN 11.5 g/dL (13.5-18.0); LYMPHOCYTES # (AUTO) 0.9 X10^3/uL (1.3-2.9); LYMPHOCYTES % (AUTO) 7.4 % (21.0-51.0); MEAN CORPUSCULAR HEMOGLOBIN 31.6 pg (27.0-34.0); MEAN CORPUSCULAR VOLUME 92.8 fL (80.0-100.0); MEAN PLATELET VOLUME 9.4 fL (7.4-11.0); MONOCYTES # (AUTO) 1.3 x10^3/uL (0.3-0.8); MONOCYTES % (AUTO) 10.3 % (0.0-13.0); NEUTROPHILS # (AUTO) 10.3 x10^3/uL (2.2-4.8); NEUTROPHILS % (AUTO) 81.7 % (42.0-75.0); PLATELET COUNT 111 X10^3/uL (150.0-450.0); RED BLOOD COUNT 3.64 X10^6/uL (4.7-6.0); RED CELL DISTRIBUTION WIDTH 12.8 % (11.6-16.5); WHITE BLOOD COUNT 12.5 X10^3/uL (3.6-10.0)
[2017-04-01] MEDS ORDERED: ZESTRIL TAB 20 MG ONE ×2 (08:13→20:30)
[2017-04-01] MEDS ORDERED: LEVAQUIN PREMIX IV 750 MG 750 MG/150 ML BAG IV SCH (09:00)
[2017-04-01] MEDS: ZYVOX 600MG IV 600 MG/300 ML BAG IV SCH ×2 (09:37→21:29)
[2017-04-01] MEDS: PROTONIX INJ 40 MG VIAL IVP SCH (09:37)
[2017-04-01] MEDS: KEPPRA TAB 500 MG PO SCH ×2 (09:40→21:41)
[2017-04-01] MEDS: CHRONULAC PEG SCH (09:40)
[2017-04-01] MEDS: NORVASC TAB 5 MG PEG SCH (09:42)
[2017-04-01] MEDS: NORCO 5/325 MG TAB PO PRN ×3 (09:42→21:25)
[2017-04-01] MEDS: ZESTRIL TAB 20 MG PEG SCH ×2 (09:43→21:24)
--- NOTE | 2017-04-01 13:00 | PCM.PROG ---
Progress Note - Progress Note for Day of Date: 04/01/17 - Subjective Subjective: 71 WM ADMITTED FROM [facility] WITH PNEUMONIA AND CHF. PT CONTINUES WITH DIMINISHED LUNG BASES AND DIFFUSE RHONCHI. PT SPUTUM CULTURE RESULTS ON CHART. PT STARTED ON ZYVOX, CONTINUE LEVAQUIN, CONTINUE IV ATBX AND IV HYDRATION, REPEAT AM LABS AND CXR - Past Medical Family Social History Past Med/Fam/Surg Hx: No changes since H&P Allergies: Allergies No Known Drug Allergies Allergy (Verified 03/28/17 15:49) - Review of Systems ROS: No change since H&P - Vital Signs and I&O's Vital Signs: Temperature 99.8 F Pulse Rate [Left Brachial] 94 Pulse Rate [Right Brachial] 110 Pulse Rate 106 Respiratory Rate 20 Blood Pressure [Right Arm] 124/74 Blood Pressure [Left Arm] 93/47 O2 Sat by Pulse Oximetry 91 Intake and Output: Intake & Output 03/30/17 03/31/17 04/01/17 04/02/17 11:59 11:59 11:59 11:59 Intake Total 2726 746 2733 Output Total 2600 525 Balance 2726 -1854 2208 - Physical Exam Oriented: Person Eyes: Normal Ear: Normal Nose: Normal Throat: Dry Respiratory: Diminished, Rhonchi Cardiovascular: Normal : Normal Auscultation: Bowel Sounds: Normal Tenderness: Normal Skin: Decreased Turgur Musculoskeletal: Motor Deficit (LOWER EXTREMITY MUSCLE WEAKNESS, ATROPHY) Mood Description: Flat Speech Pattern: Aphasic - Laboratory and Diagnostics Result Diagrams: 04/01/17 04:15 04/01/17 04:15 Labs: 03/30/17 09:20 Urine,Catheterized Urine Culture - Preliminary 03/28/17 18:20 Sputum - Expectorated Sputum Sputum Culture - Final Pseudomonas Aeruginosa Strep Agalactiae - (Group B) 03/28/17 18:20 Sputum - Expectorated Sputum - Final 03/28/17 20:10 Blood Blood Culture - Preliminary 03/28/17 21:00 Blood Blood Culture - Preliminary Laboratory WBC 12.5 X10^3/uL (3.6-10.0) H 04/01/17 04:15 RBC 3.64 X10^6/uL (4.7-6.0) L 04/01/17 04:15 Hgb 11.5 g/dL (13.5-18.0) L 04/01/17 04:15 Hct 33.8 % (42.0-54.0) L 04/01/17 04:15 MCV 92.8 fL (80.0-100.0) 04/01/17 04:15 MCH 31.6 pg (27.0-34.0) 04/01/17 04:15 MCHC 34.0 g/dL (33.0-35.0) 04/01/17 04:15 RDW 12.8 % (11.6-16.5) 04/01/17 04:15 Plt Count 111 X10^3/uL (150.0-450.0) L 04/01/17 04:15 MPV 9.4 fL (7.4-11.0) 04/01/17 04:15 Neut % 81.7 % (42.0-75.0) H 04/01/17 04:15 Lymph % 7.4 % (21.0-51.0) L 04/01/17 04:15 [place] % 10.3 % (0.0-13.0) 04/01/17 04:15 Eos % 0.3 % (0.9-2.9) L 04/01/17 04:15 Baso % 0.3 % (0.2-1.0) 04/01/17 04:15 Neut # 10.3 x10^3/uL (2.2-4.8) H 04/01/17 04:15 Lymph # 0.9 X10^3/uL (1.3-2.9) L 04/01/17 04:15 [place] # 1.3 x10^3/uL (0.3-0.8) H 04/01/17 04:15 Eos # 0.0 x10^3/uL (0.0-0.2) 04/01/17 04:15 Baso # 0.0 X10^3/uL (0.0-0.1) 04/01/17 04:15 Absolute Nucleated RBC 0.0 /100WBC 04/01/17 04:15 Sodium 140 mmol/L (136-145) 04/01/17 04:15 Corrected Sodium 140 mmol/L (136-145) 04/01/17 04:15 Potassium 4.2 mmol/L (3.5-5.1) 04/01/17 04:15 Chloride 101 mmol/L (98-107) 04/01/17 04:15 Carbon Dioxide 35.6 mmol/L (21-32) H 04/01/17 04:15 BUN 23 mg/dL (7-18) H 04/01/17 04:15 Creatinine 0.80 mg/dL (0.70-1.30) 04/01/17 04:15 Est GFR (MDRD) Af Amer > 60 (>60) 04/01/17 04:15 Est GFR (MDRD) Non-Af > 60 (>60) 04/01/17 04:15 Glucose 116 mg/dL (65-99) H 04/01/17 04:15 Calcium 7.8 mg/dL (8.5-10.1) L 04/01/17 04:15 Corrected Calcium 8.9 mg/dL (8.5-10.1) 04/01/17 04:15 Magnesium 1.8 mg/dL (1.7-2.9) 03/31/17 03:25 Total Bilirubin 0.60 mg/dL (0.2-1.0) 04/01/17 04:15 AST 34 Units/L (15-37) 04/01/17 04:15 ALT 31 Units/L (12-78) 04/01/17 04:15 Alkaline Phosphatase 69 Units/L (46-116) 04/01/17 04:15 B-Natriuretic Peptide 41.0 pg/mL (0-79) 03/29/17 14:38 Total Protein 6.3 g/dL (6.4-8.2) L 04/01/17 04:15 Albumin 2.6 g/dL (3.4-5.0) L 04/01/17 04:15 Globulin 3.7 g/dL (2.5-4.5) 04/01/17 04:15 Albumin/Globulin Ratio 0.7 Ratio (1.1-2.1) L 04/01/17 04:15 Specimen Type Catherized urine 03/30/17 09:20 Urine Color Yellow (YELLOW) 03/30/17 09:20 Urine Appearance Cloudy (CLEAR) 03/30/17 09:20 Urine pH 6.0 (5.0 - 8.0) 03/30/17 09:20 Ur Specific [place] 1.015 (1.000-1.030) 03/30/17 09:20 Urine Protein 2+ (NEGATIVE) 03/30/17 09:20 Urine Glucose (UA) Negative (NEGATIVE) 03/30/17 09:20 Urine Ketones Negative (NEGATIVE) 03/30/17 09:20 Urine Occult Blood 3+ (NEGATIVE) 03/30/17 09:20 Urine Nitrite Negative (NEGATIVE) 03/30/17 09:20 Urine Bilirubin Negative (NEGATIVE) 03/30/17 09:20 Urine Urobilinogen Normal (NORMAL) 03/30/17 09:20 Ur Leukocyte Esterase 3+ (NEGATIVE) 03/30/17 09:20 Urine RBC 15-20 /HPF (NEGATIVE) 03/30/17 09:20 Urine WBC Tntc /HPF (NEGATIVE) 03/30/17 09:20 Ur Squamous Epith Cells Rare /HPF (NEGATIVE) 03/30/17 09:20 Urine Bacteria Trace /HPF (NEGATIVE) 03/30/17 09:20 Ur Culture Indicated? Yes/culture set up 03/30/17 09:20 Levetiracetam 14 ug/mL (12-46) 03/29/17 14:38 - Plan (1) Pneumonia Status: Acute Qualifiers: Pneumonia type: P Aspiration pneumonia type: A Laterality: L Lung location: L Plan: CONTINUE IV ATBX, DIFFUSE WHEEZING SOLU MEDROL 40MG IV X 3 DOSES,. CXR AM, REPEAT AM LABS, MONITOR. RESUME HOME MEDS,. SEIZURE PRECAUTIONS, I & OS, TELEMETRY (2) CHF (congestive heart failure) Status: Acute Qualifiers: Congestive heart failure type: C Congestive heart failure chronicity: C Plan: I & O'S LASIX IV Q 12. BP AND LIPID CONTROL, (3) GERD (gastroesophageal reflux disease) Status: Acute Qualifiers: Esophagitis presence: E Plan: PPI (4) Seizure Status: Acute Plan: RESUME HOME MEDS (5) Hypertension Status: Acute Qualifiers: Hypertension type: H
[2017-04-01] MEDS: LASIX IVP SCH ×2 (14:00→21:27)
[2017-04-01] MEDS: SOLU-Medrol 40 MG VIAL IVP SCH ×3 (14:01→21:27)
[2017-04-01] MEDS: MERREM VIAL 1,000 MG in NS 100 ML IV 100 ML IV SCH ×2 (15:33→21:27)
[2017-04-02] MEDS: PROVENTIL NEB TX 0.083% 2.5MG/ 3ML NEB SCH ×5 (00:42→16:29)
[2017-04-02] MEDS: ATIVAN TAB 0.5 MG PEG PRN ×3 (05:38→21:53)
[2017-04-02] MEDS: MERREM VIAL 1,000 MG in NS 100 ML IV 100 ML IV SCH ×3 (05:38→21:56)
[2017-04-02] MEDS: NORCO 5/325 MG TAB PO PRN ×3 (05:38→21:52)
[2017-04-02 06:18] LABS: BASOPHILS % (AUTO) 0.1 % (0.2-1.0); HEMATOCRIT 31.6 % (42.0-54.0); LYMPHOCYTES % (AUTO) 11.2 % (21.0-51.0); MEAN CORPUSCULAR HEMOGLOBIN 31.9 pg (27.0-34.0); MEAN CORPUSCULAR HGB CONC 34.8 g/dL (33.0-35.0); MEAN CORPUSCULAR VOLUME 91.7 fL (80.0-100.0); MEAN PLATELET VOLUME 9.5 fL (7.4-11.0); MONOCYTES # (AUTO) 0.1 x10^3/uL (0.3-0.8); MONOCYTES % (AUTO) 1.5 % (0.0-13.0); NEUTROPHILS # (AUTO) 7.8 x10^3/uL (2.2-4.8); NEUTROPHILS % (AUTO) 87.2 % (42.0-75.0); PLATELET COUNT 108 X10^3/uL (150.0-450.0); RED BLOOD COUNT 3.45 X10^6/uL (4.7-6.0); RED CELL DISTRIBUTION WIDTH 12.8 % (11.6-16.5); WHITE BLOOD COUNT 8.9 X10^3/uL (3.6-10.0)
[2017-04-02 06:40] LABS: ALANINE AMINOTRANSFERASE 36 Units/L (12-78); ALBUMIN 2.4 g/dL (3.4-5.0); ALKALINE PHOSPHATASE 55 Units/L (46-116); ASPARTATE AMINO TRANSFERASE 36 Units/L (15-37); BLOOD UREA NITROGEN 33 mg/dL (7-18); CARBON DIOXIDE 35.3 mmol/L (21-32); CHLORIDE 97 mmol/L (98-107); COR CA(FOR HYPOALB) 9.3 mg/dL (8.5-10.1); COR NA(FOR HYPERGLY) 140 mmol/L (136-145); CREATININE 0.83 mg/dL (0.70-1.30); GLUCOSE 232 mg/dL (65-99); SODIUM 137 mmol/L (136-145); TOTAL PROTEIN 6.4 g/dL (6.4-8.2); eGFR BLACK RACES > 60 (>60); eGFR NON BLACK RACES > 60 (>60)
--- NOTE | 2017-04-02 07:50 | RAD ---
HISTORY: Pain Study: Portable AP chest Comparison: 03/30/2017 Findings: The heart is mildly enlarged but unchanged. The pulmonary vessels are less prominent centrally . The re are hazy bibasilar opacities which have decreased . There is mild blunting of the costophrenic cox lci which is less prominent. IMPRESSION: Stable cardiomegaly with slowly resolving pulmonary edema. Hazy bibasilar opacities which are less prominent and probable small bibasilar pleural effusions whi ch have decreased in size. Reported By:
[2017-04-02] MEDS ORDERED: ZESTRIL TAB 20 MG ONE ×2 (07:52→21:10)
[2017-04-02] MEDS: ZYVOX 600MG IV 600 MG/300 ML BAG IV SCH ×2 (09:46→21:52)
[2017-04-02] MEDS: ZESTRIL TAB 20 MG PEG SCH ×2 (09:46→21:56)
[2017-04-02] MEDS: PROTONIX INJ 40 MG VIAL IVP SCH (09:46)
[2017-04-02] MEDS: CHRONULAC PEG SCH (09:46)
[2017-04-02] MEDS: NORVASC TAB 5 MG PEG SCH (09:47)
[2017-04-02] MEDS: KEPPRA TAB 500 MG PO SCH ×2 (09:47→21:54)
--- NOTE | 2017-04-02 16:44 | PCM.PROG ---
Progress Note - Progress Note for Day of Date: 04/02/17 - Subjective Subjective: 71 WM ADMITTED FROM [facility] WITH PNEUMONIA AND CHF. PT CONTINUES WITH DIMINISHED LUNG BASES AND DIFFUSE RHONCHI. PT SPUTUM CULTURE RESULTS ON CHART. PT STARTED ON ZYVOX,AND MEROPENEM,CONTINUE IV ATBX AND IV HYDRATION, REPEAT AM LABS AND ct OF THE CHEST - Past Medical Family Social History Past Med/Fam/Surg Hx: No changes since H&P Allergies: Allergies No Known Drug Allergies Allergy (Verified 03/28/17 15:49) - Review of Systems ROS: No change since H&P - Vital Signs and I&O's Vital Signs: Temperature 97.0 F Pulse Rate [Left Brachial] 92 Pulse Rate [Right Brachial] 110 Pulse Rate 106 Respiratory Rate 18 Blood Pressure [Right Arm] 143/70 Blood Pressure [Left Arm] 124/60 O2 Sat by Pulse Oximetry 90 Intake and Output: Intake & Output 03/31/17 04/01/17 04/02/17 04/03/17 11:59 11:59 11:59 11:59 Intake Total 746 2733 1950 0 Output Total 2600 525 1350 250 Balance -1854 2208 600 -250 - Physical Exam Oriented: Person Eyes: Normal Ear: Normal Nose: Normal Throat: Dry Respiratory: Diminished, Rhonchi Cardiovascular: Normal : Normal Auscultation: Bowel Sounds: Normal Tenderness: Normal Skin: Decreased Turgur Musculoskeletal: Motor Deficit (LOWER EXTREMITY MUSCLE WEAKNESS, ATROPHY) Mood Description: Flat Speech Pattern: Aphasic - Laboratory and Diagnostics Result Diagrams: 04/02/17 04:25 04/02/17 04:25 Labs: 03/28/17 20:10 Blood Blood Culture - Final 03/28/17 21:00 Blood Blood Culture - Final 03/30/17 09:20 Urine,Catheterized Urine Culture - Final Escherichia Coli 03/28/17 18:20 Sputum - Expectorated Sputum Sputum Culture - Final Pseudomonas Aeruginosa Strep Agalactiae - (Group B) 03/28/17 18:20 Sputum - Expectorated Sputum - Final Laboratory WBC 8.9 X10^3/uL (3.6-10.0) 04/02/17 04:25 RBC 3.45 X10^6/uL (4.7-6.0) L 04/02/17 04:25 Hgb 11.0 g/dL (13.5-18.0) L 04/02/17 04:25 Hct 31.6 % (42.0-54.0) L 04/02/17 04:25 MCV 91.7 fL (80.0-100.0) 04/02/17 04:25 MCH 31.9 pg (27.0-34.0) 04/02/17 04:25 MCHC 34.8 g/dL (33.0-35.0) 04/02/17 04:25 RDW 12.8 % (11.6-16.5) 04/02/17 04:25 Plt Count 108 X10^3/uL (150.0-450.0) L 04/02/17 04:25 MPV 9.5 fL (7.4-11.0) 04/02/17 04:25 Neut % 87.2 % (42.0-75.0) H 04/02/17 04:25 Lymph % 11.2 % (21.0-51.0) L 04/02/17 04:25 [place] % 1.5 % (0.0-13.0) 04/02/17 04:25 Eos % 0.0 % (0.9-2.9) L 04/02/17 04:25 Baso % 0.1 % (0.2-1.0) L 04/02/17 04:25 Neut # 7.8 x10^3/uL (2.2-4.8) H 04/02/17 04:25 Lymph # 1.0 X10^3/uL (1.3-2.9) L 04/02/17 04:25 [place] # 0.1 x10^3/uL (0.3-0.8) L 04/02/17 04:25 Eos # 0.0 x10^3/uL (0.0-0.2) 04/02/17 04:25 Baso # 0.0 X10^3/uL (0.0-0.1) 04/02/17 04:25 Absolute Nucleated RBC 0.0 /100WBC 04/02/17 04:25 Sodium 137 mmol/L (136-145) 04/02/17 04:25 Corrected Sodium 140 mmol/L (136-145) 04/02/17 04:25 Potassium 3.8 mmol/L (3.5-5.1) 04/02/17 04:25 Chloride 97 mmol/L (98-107) L 04/02/17 04:25 Carbon Dioxide 35.3 mmol/L (21-32) H 04/02/17 04:25 BUN 33 mg/dL (7-18) H 04/02/17 04:25 Creatinine 0.83 mg/dL (0.70-1.30) 04/02/17 04:25 Est GFR (MDRD) Af Amer > 60 (>60) 04/02/17 04:25 Est GFR (MDRD) Non-Af > 60 (>60) 04/02/17 04:25 Glucose 232 mg/dL (65-99) H 04/02/17 04:25 Calcium 8.0 mg/dL (8.5-10.1) L 04/02/17 04:25 Corrected Calcium 9.3 mg/dL (8.5-10.1) 04/02/17 04:25 Magnesium 1.8 mg/dL (1.7-2.9) 03/31/17 03:25 Total Bilirubin 0.30 mg/dL (0.2-1.0) 04/02/17 04:25 AST 36 Units/L (15-37) 04/02/17 04:25 ALT 36 Units/L (12-78) 04/02/17 04:25 Alkaline Phosphatase 55 Units/L (46-116) 04/02/17 04:25 B-Natriuretic Peptide 41.0 pg/mL (0-79) 03/29/17 14:38 Total Protein 6.4 g/dL (6.4-8.2) 04/02/17 04:25 Albumin 2.4 g/dL (3.4-5.0) L 04/02/17 04:25 Globulin 4.0 g/dL (2.5-4.5) 04/02/17 04:25 Albumin/Globulin Ratio 0.6 Ratio (1.1-2.1) L 04/02/17 04:25 Specimen Type Catherized urine 03/30/17 09:20 Urine Color Yellow (YELLOW) 03/30/17 09:20 Urine Appearance Cloudy (CLEAR) 03/30/17 09:20 Urine pH 6.0 (5.0 - 8.0) 03/30/17 09:20 Ur Specific [place] 1.015 (1.000-1.030) 03/30/17 09:20 Urine Protein 2+ (NEGATIVE) 03/30/17 09:20 Urine Glucose (UA) Negative (NEGATIVE) 03/30/17 09:20 Urine Ketones Negative (NEGATIVE) 03/30/17 09:20 Urine Occult Blood 3+ (NEGATIVE) 03/30/17 09:20 Urine Nitrite Negative (NEGATIVE) 03/30/17 09:20 Urine Bilirubin Negative (NEGATIVE) 03/30/17 09:20 Urine Urobilinogen Normal (NORMAL) 03/30/17 09:20 Ur Leukocyte Esterase 3+ (NEGATIVE) 03/30/17 09:20 Urine RBC 15-20 /HPF (NEGATIVE) 03/30/17 09:20 Urine WBC Tntc /HPF (NEGATIVE) 03/30/17 09:20 Ur Squamous Epith Cells Rare /HPF (NEGATIVE) 03/30/17 09:20 Urine Bacteria Trace /HPF (NEGATIVE) 03/30/17 09:20 Ur Culture Indicated? Yes/culture set up 03/30/17 09:20 Levetiracetam 14 ug/mL (12-46) 03/29/17 14:38 - Plan (1) Pneumonia Status: Acute Qualifiers: Pneumonia type: P Aspiration pneumonia type: A Laterality: L Lung location: L Plan: CONTINUE IV ATBX, RESPIRATORY THERAPY, SUPPLEMENTAL o2, ct OF THE CHEST, REPEAT AM LABS, MONITOR. RESUME HOME MEDS,. SEIZURE PRECAUTIONS, I & OS, TELEMETRY (2) CHF (congestive heart failure) Status: Acute Qualifiers: Congestive heart failure type: C Congestive heart failure chronicity: C Plan: I & O'S LASIX IV Q 12. BP AND LIPID CONTROL, (3) GERD (gastroesophageal reflux disease) Status: Acute Qualifiers: Esophagitis presence: E Plan: PPI (4) Seizure Status: Acute Plan: RESUME HOME MEDS (5) Hypertension Status: Acute Qualifiers: Hypertension type: H
[2017-04-03] MEDS: PROVENTIL NEB TX 0.083% 2.5MG/ 3ML NEB SCH ×4 (01:06→17:23)
[2017-04-03] MEDS: ATIVAN TAB 0.5 MG PEG PRN ×2 (01:48→05:30)
[2017-04-03] MEDS: MERREM VIAL 1,000 MG in NS 100 ML IV 100 ML IV SCH ×3 (02:44→13:31)
[2017-04-03] MEDS: ZYVOX 600MG IV 600 MG/300 ML BAG IV SCH ×2 (02:45→09:34)
[2017-04-03] MEDS: NORCO 5/325 MG TAB PO PRN (03:49)
[2017-04-03] MEDS ORDERED: NS 1/2 1000 ML IV 1,000 ML IV ONE (06:02)
[2017-04-03] MEDS: NS 1/2 1000 ML IV 1,000 ML IV SCH (06:07)
[2017-04-03 06:09] LABS: BASOPHILS % (AUTO) 0.2 % (0.2-1.0); HEMATOCRIT 30.8 % (42.0-54.0); HEMOGLOBIN 10.8 g/dL (13.5-18.0); LYMPHOCYTES # (AUTO) 1.6 X10^3/uL (1.3-2.9); LYMPHOCYTES % (AUTO) 18.8 % (21.0-51.0); MEAN CORPUSCULAR HGB CONC 35.3 g/dL (33.0-35.0); MEAN CORPUSCULAR VOLUME 90.7 fL (80.0-100.0); MEAN PLATELET VOLUME 9.4 fL (7.4-11.0); MONOCYTES # (AUTO) 0.4 x10^3/uL (0.3-0.8); MONOCYTES % (AUTO) 5.3 % (0.0-13.0); NEUTROPHILS # (AUTO) 6.3 x10^3/uL (2.2-4.8); NEUTROPHILS % (AUTO) 75.7 % (42.0-75.0); PLATELET COUNT 117 X10^3/uL (150.0-450.0); RED BLOOD COUNT 3.39 X10^6/uL (4.7-6.0); RED CELL DISTRIBUTION WIDTH 12.7 % (11.6-16.5); WHITE BLOOD COUNT 8.3 X10^3/uL (3.6-10.0)
[2017-04-03 06:24] LABS: ALANINE AMINOTRANSFERASE 30 Units/L (12-78); ALBUMIN 2.5 g/dL (3.4-5.0); ALKALINE PHOSPHATASE 47 Units/L (46-116); ASPARTATE AMINO TRANSFERASE 21 Units/L (15-37); BLOOD UREA NITROGEN 38 mg/dL (7-18); CALCIUM 7.9 mg/dL (8.5-10.1); CHLORIDE 98 mmol/L (98-107); COR CA(FOR HYPOALB) 9.1 mg/dL (8.5-10.1); COR NA(FOR HYPERGLY) 138 mmol/L (136-145); GLUCOSE 120 mg/dL (65-99); SODIUM 138 mmol/L (136-145); TOTAL PROTEIN 6.3 g/dL (6.4-8.2); eGFR BLACK RACES > 60 (>60); eGFR NON BLACK RACES > 60 (>60)
[2017-04-03] MEDS ORDERED: ZESTRIL TAB 20 MG ONE (09:26)
[2017-04-03] MEDS: ZESTRIL TAB 20 MG PEG SCH (09:34)
[2017-04-03] MEDS: KEPPRA TAB 500 MG PO SCH (09:34)
[2017-04-03] MEDS: NORVASC TAB 5 MG PEG SCH (09:34)
[2017-04-03] MEDS: CHRONULAC PEG SCH (09:34)
[2017-04-03] MEDS: PROTONIX INJ 40 MG VIAL IVP SCH (09:43)
[2017-04-03] MEDS ORDERED: PROTONIX TAB 40 MG PO SCH (10:00)
[2017-04-03] MEDS ORDERED: ATIVAN TAB 0.5 MG GT PRN (12:36)
[2017-04-03] MEDS ORDERED: TYLENOL SUPP 650 MG PR PRN (12:36)
[2017-04-03] MEDS ORDERED: PATIENT'S HOME MEDICATION (Cyclosporine [Restasis] 1 DROP) EACHEYE SCH (12:45)
[2017-04-03] MEDS ORDERED: ZANTAC PEG SCH (13:00)
[2017-04-03] MEDS ORDERED: MILK OF MAGNESIA PEG SCH (13:00)
[2017-04-03] MEDS ORDERED: ZESTRIL TAB 20 MG PEG SCH (13:00)
[2017-04-03] MEDS ORDERED: NORVASC TAB 5 MG PEG SCH (13:00)
[2017-04-03] MEDS ORDERED: CHRONULAC PEG SCH (13:00)
[2017-04-03] MEDS ORDERED: VALPROIC ACID PEG SCH (14:00)
[2017-04-03] MEDS: LEVETIRACETAM PEG SCH ×2 (14:18→14:25)
--- NOTE | 2017-04-03 15:06 | CT ---
CT chest without contrast Indication: CHF, pneumonia Comparison: Chest radiograph 04/02/2017 Technique: CT images of the chest were obtained without contrast. Automatic exposure control was uti lized. Findings: Images through the upper abdomen demonstrate cholelithiasis. No aggressive osseous lesions The heart is mildly enlarged, without significant pericardial effusion. There are scattered coronary atherosclerotic calcifications. No intrathoracic adenopathy identified. There is mild elevation of the right hemidiaphragm. There is linear subsegmental atelectasis at the right lung base. There is i nterstitial thickening of both lung bases with small right pleural effusion. The upper lungs are ess entially clear. There is a small calcified right middle lobe granuloma. The upper thoracic esophagus is patulous, although no obvious obstruction is seen. Impression: Cardiomegaly with findings of mild CHF, including basilar interstitial thickening and small right pl eural effusion. Reported By:
[2017-04-03 16:21] VITALS: BP 121/57
[2017-04-03] MEDS ORDERED: PEPCID 20 MG IV PREMIX* 20 MG/50 ML BAG IV SCH (21:00)
== END 2017-04-03 18:50 | DRG 194 ==
LOC: UNDOADMOB 15:37 → MED/SURG 15:37 → OBSVTOIN 03-30 08:30
PROVIDERS: ADMIT Internal Medicine; ATTEND Internal Medicine
DX: J16.8 Pneumonia due to other specified infectious organisms (principal); I50.9 Heart failure, unspecified; I10 Essential (primary) hypertension; K21.9 Gastro-esophageal reflux disease without esophagitis; G40.89 Other seizures; B95.1 Streptococcus, group B, as the cause of diseases classified elsewhere; B96.5 Pseudomonas (aeruginosa) (mallei) (pseudomallei) as the cause of diseases classified elsewhere; B96.29 Other Escherichia coli [E. coli] as the cause of diseases classified elsewhere
CPT/HCPCS: 36415; 71010; 71250; 80053; 80177; 81001; 83735; 83880; 85025; 87040; 87070; 87077; 87086; 87088; 87186; 87205; 94640; 94760; A4222; C9113; G0378; J0456; J0696; J1940; J1956; J2020; J2185; J2920; J7613